=== PATIENT | female | born 1950 | race Two or more races ===

== ENCOUNTER 2019-04-25 09:52 | Emergency (ER) | payer OTHER ==
[~2019-04-25] VITALS: Ht 167.6 cm; Wt 83.0 kg
[2019-04-25 09:57] VITALS: Ht 167.6 cm; Wt 83.0 kg
[2019-04-25 14:26] VITALS: BP 109/56
== END 2019-04-25 14:26 | disposition home or self-care (01) ==
LOC: ED 09:52
DX: T78.40XA Allergy, unspecified, initial encounter (principal); S09.8XXA Other specified injuries of head, initial encounter; I10 Essential (primary) hypertension; E11.9 Type 2 diabetes mellitus without complications; J45.909 Unspecified asthma, uncomplicated; Z88.6 Allergy status to analgesic agent; Z88.0 Allergy status to penicillin; X58.XXXA Exposure to other specified factors, initial encounter; Y93.89 Activity, other specified; Y92.89 Other specified places as the place of occurrence of the external cause; Y99.8 Other external cause status
CPT/HCPCS: J0171; J1200; J2930; J7030; J7613; Q0092